=== PATIENT | female | born 1955 | race Caucasian/White ===

== ENCOUNTER 2018-03-13 16:21 | Emergency (ER) | payer BC ==
--- NOTE | 2018-03-13 17:06 | EDPHY ---
H & P Time Seen by Provider: 03/13/18 16:38 HPI/ROS: This patient presents with achy right calf pain and swelling atraumatic in onset. She explains that 2 half days ago she awakened with pain and swelling that was initially moderate pain in the right calf worsen with walking. The intensity of the pain is actually diminish since then and is currently mild but she notices persistent swelling and pain. When she spoke to her primary care physician they recommended she come in for further evaluation to rule out DVT. Patient's only apparent risk factor for DVT is a knee procedure [address] Sharma-gel injection to the right knee for osteoarthritis. ROS: Constitutional: No fevers. No other complaints. HEENT: No complaints line pulmonary: No shortness of breath or chest pain. Cardiovascular: No lightheadedness. Integumentary: The patient reports that she feels slight warmth to touch to the affected right calf but has noticed no discoloration to the skin. Neuro: No numbness or tingling Musculoskeletal: No recent trauma. No other musculoskeletal complaints this time. 7 point ROS is otherwise negative. Past Medical/Surgical History: Bilateral knee osteoarthritis. Hypertension Family history is negative for DVT or PE Social History: No recent prolonged travel or immobilization. Smoking Status: Never smoked Physical Exam: General Appearance: Alert, no distress. ENT, Mouth: Mucous membranes moist. Respiratory: There are no retractions, lungs are clear to auscultation. Cardiovascular: Regular rate and rhythm. No murmur gallop rub. She maintains 2+ symmetric pulses in bilateral lower extremities. Neurological: GCS 15 with no focal deficits in affected lower extremity. Skin: Warm and dry, no rashes. Extremities are symmetrical, full range of motion. Psychiatric: Mood and affect are normal DIFFERENTIAL DIAGNOSIS: After history and physical exam differential diagnosis was considered for calf muscle strain, DVT, subtle Curtis cyst, referred pain from her osteoarthritis Constitutional: Initial Vital Signs Temperature (C) 37.0 C 03/13/18 16:35 Heart Rate 87 03/13/18 16:35 Respiratory Rate 16 03/13/18 16:35 Blood Pressure 130/80 H 03/13/18 16:35 O2 Sat (%) 94 03/13/18 16:35 O2 Delivery Mode Room Air Allergies/Adverse Reactions: sulfasalazine [From Azulfidine] Allergy (Verified 05/10/18 18:45) Home Medications: Medication Instructions Recorded Amitriptyline HCl 03/13/18 Clobetasol 0.05% 03/13/18 Cromylyn Sodium Eyedrops 03/13/18 DULoxetine 03/13/18 Hrt 03/13/18 Losartan Potassium 03/13/18 Multivitamins 03/13/18 Wellbutrin 75mg (*) 03/13/18 Hydrocodone/APAP 5/325 [[place] 1 - 2 tab PO Q4H PRN #10 tab 03/16/18 5/325] Pravastatin Sodium 03/16/18 MDM/Departure - MDM Diagnostics: The Doppler ultrasound of lower extremity is negative for DVT or other significant abnormalities per radiologist, Dr. Early ED Course/Re-evaluation: Discussion: Patient with calf pain without significant risk factors except for minor risk of recent the procedure for DVT with a negative Doppler ultrasound. I suspect the patient has a muscle strain. I counseled her regarding this and demonstrated some stretches that may assist with her muscle strain. Patient her stands the need to return to the emergency department should she develop any significant worsening of her symptoms despite the treatment plan. - Depart Disposition: Home, Routine, Self-Care Clinical Impression: Right calf pain Condition: Good Instructions: Leg Pain (ED) Additional Instructions: Diagnosis: Leg pain Your ultrasound of the leg revealed no evidence of deep venous thrombosis. Plan: Tylenol and/or ibuprofen for discomfort as needed Gentle stretching daily Symptoms should improve over the next 3-7 days. Return for any significant worsening despite the treatment plan. Referrals: Cristiane Grant MD [Primary Care Provider] - As per Instructions
[2018-03-13 17:44] VITALS: BP 133/87
== END 2018-03-13 17:43 | disposition home or self-care (01) ==
LOC: CED 16:21
DX: M79.604 Pain in right leg (principal); I10 Essential (primary) hypertension
CPT/HCPCS: 93971-PO

== ENCOUNTER 2018-03-16 18:31 | Emergency (ER) | payer BC ==
--- NOTE | 2018-03-16 18:33 | EDPHY ---
H & P Time Seen by Provider: 03/16/18 18:33 HPI/ROS: HPI CHIEF COMPLAINT: Right leg pain, recent ER visit HISTORY OF PRESENT ILLNESS: Very pleasant 62-year-old female who presents emergency room with right leg pain. She was recently here in the ER for right flank pain and swelling 3 days ago and had ultrasound. I did review the previous ER chart as well as ultrasound. There is no evidence of DVT on ultrasound. She states that her pain is been doing okay however today she thinks she may re-injured her calf. She was walking and stepped somewhat awkward and felt increasing worsening pain to the right posterior calf. The pain is notably worse when she dorsiflex her foot. Or noticed when she straightens her leg. She has significant pain to the posterior calf. She is neurovascularly intact on exam. She has a good distal pulse. Warm extremity. There is no compartment syndrome on exam. Compartments are soft. There is tenderness to palpation over the posterior mid calf. The Achilles intact. Most likely clinically she has a gastrocnemius or calf tear. Most likely partial. She has good plantar flexion and dorsiflexion of her foot. However pain with dorsiflexion. Past Medical History: Hypertension, osteoarthritis Past Surgical History: Recent knee injection of correction for osteoarthritis Social History: Denies drugs alcohol tobacco. Family History: Noncontributory ROS REVIEW OF SYSTEMS: A comprehensive 10 point review of systems is otherwise negative aside from elements mentioned in the history of present illness. Exam Constitutional triage nursing summary reviewed, vital signs reviewed, awake/ alert. Eyes normal conjunctivae and sclera, EOMI, PERRLA. HENT normal inspection, atraumatic, moist mucus membranes, no epistaxis, neck supple/ no meningismus, no raccoon eyes. Respiratory clear to auscultation bilaterally, normal breath sounds, no respiratory distress, no wheezing. Cardiovascular rate normal, regular rhythm, no murmur, no edema, distal pulses normal. Gastrointestinal soft, non-tender, no rebound, no guarding, normal bowel sounds, no distension, no pulsatile mass. Genitourinary no CVA tenderness. Musculoskeletal RLE: The pain is notably worse when she dorsiflex her foot. Or distally when she straightens her leg. She has significant pain to the posterior calf. She is neurovascularly intact on exam. She has a good distal pulse. Warm extremity. There is no compartment syndrome on exam. Compartments are soft. There is tenderness to palpation over the posterior mid calf. The Achilles intact. Most likely clinically she has a gastrocnemius or calf tear. Most likely partial. She has good plantar flexion and dorsiflexion of her foot. However pain with dorsiflexion. no midline vertebral tenderness, full range of motion, no calf swelling, no tenderness of extremities, no meningismus, good pulses, neurovascularly intact. Skin pink, warm, & dry, no rash, skin atraumatic. Neurologic awake, alert and oriented x 3, AAOx3, moves all 4 extremities equally, motor intact, sensory intact, CN II-XII intact, normal cerebellar, normal vision, normal speech. Psychiatric normal mood/affect. Heme/Lymph/Immune no lymphadenopathy. Differential Diagnosis: Includes but is not limited to in a particular order gastrocnemius tear, musculoskeletal tear, muscle strain, partial tear, Curtis cyst, ruptured Curtis cyst no evidence of DVT from ultrasound from a few days ago , Medical Decision Making: Plan for this pain the right tib-fib, and ultrasound soft tissue to further evaluate. Most likely placed on crutches, and walking boot to help. Close orthopedic follow-up. Patient states she cannot take anti-inflammatories. Will prescribe [place] for pain control. Limited supply. Will refer to orthopedics for further care and follow-up. Clinically most likely she has a ruptured Curtis cyst versus musculoskeletal tear. Re-evaluation: X-ray reviewed. No evidence of acute bony abnormality or fracture. Interpreted by myself. Ultrasound reviewed shows complex Curtis cyst. I went over this with the patient. Gave her ultrasound results. Recommend elevation, ice, anti-inflammatory pain medicine. [place] for severe pain. Crutches walking boot for comfort. Follow up with Orthopedics as needed. She understands. Source: Patient - Medical/Surgical History Hx Asthma: No Hx Chronic Respiratory Disease: No Hx Diabetes: No Hx Cardiac Disease: No Hx Renal Disease: No Hx Cirrhosis: No Hx Alcoholism: No Hx HIV/AIDS: No Hx Splenectomy or Spleen Trauma: No Other PMH: Med hx-environmental allergies,anxiety/depression,mitochondria myopathy. surg-4 c-sect,2 surg,shoulder x2 - Social History Smoking Status: Never smoked Constitutional: Initial Vital Signs Temperature (C) 36.6 C 03/16/18 18:39 Heart Rate 72 03/16/18 18:39 Respiratory Rate 24 H 03/16/18 18:39 Blood Pressure 130/79 H 03/16/18 18:39 O2 Sat (%) 100 03/16/18 18:39 O2 Delivery Mode Room Air Allergies/Adverse Reactions: sulfasalazine [From Azulfidine] Allergy (Verified 03/16/18 18:45) Home Medications: Medication Instructions Recorded Amitriptyline HCl 03/13/18 Clobetasol 0.05% 03/13/18 Cromylyn Sodium Eyedrops 03/13/18 DULoxetine 03/13/18 Hrt 03/13/18 Losartan Potassium 03/13/18 Multivitamins 03/13/18 Wellbutrin 75mg (*) 03/13/18 Hydrocodone/APAP 5/325 [[place] 1 - 2 tab PO Q4H PRN #10 tab 03/16/18 5/325] Pravastatin Sodium 03/16/18 Medical Decision Making - Diagnostics Imaging Results: Imaging Impressions Extremity Ultrasound 03/16/18 18:46 Impression: Complex Curtis's cyst, with a deep subcutaneous fluid collection in the proximal calf that may be separate from the Curtis's cyst, which could be related to muscle tear/hematoma or inferior extension of a ruptured Curtis's cyst. Findings discussed with Kam Andersen M.D., on March 16, 2018 at 1927. - Data Points Medications Given: Discontinued Medications Hydrocodone Bitart/Acetaminophen ([place] 5/325) 2 tab PO EDNOW ONE Stop: 03/16/18 18:54 Last Admin: 03/16/18 19:14 Dose: 2 tab Departure - Departure Disposition: Home, Routine, Self-Care Clinical Impression: Curtis cyst Qualifiers: Laterality: right Qualified Code(s): M71.21 - Synovial cyst of popliteal space [Curtis], right knee Condition: Good Instructions: Muscle Strain (ED), Bakers Cyst (ED) Additional Instructions: 1. Recommend elevating your leg. 2. Recommend walking boot and crutches for comfort and immobilization. 3. [place] for severe pain. 4. Follow up with Orthopedics. 5. Return emergency room if there is worsening symptoms questions or concerns. Referrals: Heather Sharma MD [Medical Doctor] - As per Instructions Prescriptions: Hydrocodone/APAP 5/325 [[place] 5/325] 1 - 2 tab PO Q4H PRN #10 tab PRN Reason: Pain, Moderate
[2018-03-16] MEDS ORDERED: HYDROCOD/APAP 5/325 PREPACK#6 BTL TAKEHOME ONE (18:46)
[2018-03-16] MEDS ORDERED: HYDROCODONE/APAP 10/325 TAB PO ONE (18:46)
[2018-03-16] MEDS ORDERED: HYDROCODONE/APAP 5/325 TAB PO ONE (18:53)
[2018-03-16 20:24] VITALS: BP 141/85
== END 2018-03-16 20:10 | disposition home or self-care (01) ==
LOC: CED 18:31
DX: M71.21 Synovial cyst of popliteal space [Baker], right knee (principal); I10 Essential (primary) hypertension
CPT/HCPCS: 73590-PO; 76882-PO; L4386

== ENCOUNTER 2019-01-30 05:38 | Day surgery (SDC) | payer OTHER, BC ==
[2019-01-30] MEDS ORDERED: LR 1,000 ML IV SCH (06:04)
[2019-01-30] MEDS ORDERED: ceFAZolin 2 GM/DEXTROSE 100 ML IV ONE (06:04)
[2019-01-30] MEDS ORDERED: LR 1,000 ML IV ONE (06:05)
[2019-01-30] MEDS ORDERED: MIDAZOLAM 2 MG/2 ML VIAL IVP ONE (06:45)
--- NOTE | 2019-01-30 06:46 | PDANEPAE ---
ANE History of Present Illness 63 y/o with htn and mitochondrial myopathy (currently asymptomatic, on zero meds ) here for right shoulder surgery Does not want ISB Asystole with left shoulder surgery for 16 s on incision. ANE Past Medical History - Cardiovascular History Hx Hypertension: Yes Hx Arrhythmias: No Hx Chest Pain: No Hx Coronary Artery / Peripheral Vascular Disease: No Hx CHF / Valvular Disease: No Hx Palpitations: No - Pulmonary History Hx COPD: No Hx Asthma/Reactive Airway Disease: No Hx Recent Upper Respiratory Infection: No Hx Oxygen in Use at Home: No Hx Sleep Apnea: Yes Sleep Apnea Screening Result - Last Documented: Positive Pulmonary History Comment: HX OF MIK[place]A USES ORAL APPLIANCE - Neurologic History Hx Cerebrovascular Accident: No Hx Seizures: No Hx Dementia: No - Endocrine History Hx Diabetes: No - Renal History Hx Renal Disorders: Yes Renal History Comment: CHRONIC CYSTITIS NO ISSUES PAST 15 YEARS - Liver History Hx Hepatic Disorders: No - Neurological & Psychiatric Hx Hx Neurological and Psychiatric Disorders: No - Cancer History Hx Cancer: No - Congenital Disorder History Hx Congenital Disorders: No - GI History Hx Gastrointestinal Disorders: No - Other Health History Other Health History: MITOCHONDRIAL MYOPATHY. CURRENTLY SYMPTOM FREE. OSTEOARTHRITIS. RT SHLDR LIMITED ROM - Chronic Pain History Chronic Pain: Yes (RT SHLDR, AND LT KNEE) - Surgical History Prior Surgeries: HANNA TOTAL KNEE. LT SHLDR SCOPE ANE Review of Systems Review of Systems: - Exercise capacity METS (RN): 6 METS ANE Patient History - Allergies Allergies/Adverse Reactions: sulfasalazine [From Azulfidine] Allergy (Verified 01/19/19 15:38) Hives - Home Medications Home Medications: Amitriptyline HCl HS 03/13/18 [Last Taken 01/29/19] Clobetasol 0.05% MISC PRN 03/13/18 [Last Taken 01/29/19] DULoxetine HS 03/13/18 [Last Taken 01/29/19] Losartan Potassium DAILY 03/13/18 [Last Taken 01/29/19] Multivitamins DAILY 03/13/18 [Last Taken 01/29/19] Pravastatin Sodium HS 03/16/18 [Last Taken 01/29/19] Aspirin DAILY 01/19/19 [Last Taken 1 Week Ago ~01/23/19] Estrace Vaginal (*) ONCE 01/19/19 [Last Taken 01/29/19] Herbals/Supplements -Info Only DAILY 01/19/19 [Last Taken 01/29/19] - NPO status NPO Since - Liquids (Date): 01/29/19 NPO Since - Liquids (Time): 18:00 NPO Since - Solids (Date): 01/29/19 NPO Since - Solids (Time): 18:00 - Smoking Hx Smoking Status: Never smoked ANE Labs/Vital Signs - Vital Signs Blood Pressure: 151/88 Heart Rate: 63 Respiratory Rate: 14 O2 Sat (%): 95 Height: 162.56 cm Weight: 71.668 kg ANE Physical Exam - Airway Neck exam: FROM Mallampati Score: Class 2 Mouth exam: normal dental/mouth exam - ASA Status ASA Status: II
[2019-01-30] MEDS ORDERED: CALCIUM CHLORIDE 1 GM/10 ML INJ ONE (06:57)
[2019-01-30] MEDS ORDERED: THROMBIN (BOVINE) 5,000 UNIT VIAL TP ONE (06:57)
[2019-01-30] MEDS ORDERED: EPINEPHrine 30 MG/30 ML MDV (0.1 MG/0.1 ML) ONE (06:57)
[2019-01-30] MEDS ORDERED: BUPIVACAINE/EPI 0.5% 30 ML SDV ONE (06:57)
[2019-01-30] MEDS ORDERED: fentaNYL 100 MCG/2 ML INJ ONE (07:07)
[2019-01-30] MEDS ORDERED: PROPOFOL 200 MG/20 ML VIAL ONE ×2 (07:07→07:41)
--- NOTE | 2019-01-30 07:11 | PDGENHP ---
History & Physical Chief Complaint: r shoulder pain Cardiorespiratory Assessment: cta rrr. soft and nt
--- NOTE | 2019-01-30 07:11 | PDHPUP ---
History & Physical Update H&P update statement: This history and physical update is based on an assessment of the patient which was completed after admission or registration (within 24 hours), but prior to the surgery/procedure. H&P update: H&P reviewed & patient examined, no change in patient's condition since H&P completed
[2019-01-30] MEDS ORDERED: ONDANSETRON 4 MG/2 ML VIAL ONE ×2 (07:44)
[2019-01-30] MEDS ORDERED: LIDOCAINE 2% 100 MG/5 ML SYR ONE (07:44)
[2019-01-30] MEDS ORDERED: DEXAMETHASONE 4 MG/ML VIAL ONE ×2 (07:44)
[2019-01-30] MEDS ORDERED: HYDROmorphONE/DILAUDID 2 MG/ML INJ ONE (07:47)
[2019-01-30] MEDS ORDERED: ePHEDrine SULFATE 25 MG/5 ML SYR ONE ×2 (07:48→07:55)
[2019-01-30] MEDS ORDERED: GLYCOPYRROLATE 0.2 MG/1 ML VIAL ONE ×2 (07:54)
[2019-01-30] MEDS ORDERED: PHENYLEPHRINE HCL 100 MCG/ML SYR ONE (07:55)
--- NOTE | 2019-01-30 08:46 | GHP ---
[f rep st] HISTORY AND PHYSICAL DATE OF ADMISSION: 01/30/2019 CHIEF COMPLAINT: Right shoulder pain. HISTORY OF PRESENT ILLNESS: Ms. Baker is a 63-year-old female with a several-month history of right shoulder pain by multiple conservative management. MRI reveals labral tearing, partial-t hickness rotator cuff tear, glenohumeral joint arthritis and subacromial impingement probl em. DRUG ALLERGIES: Include azulfidine. CURRENT MEDICATIONS: Include amitriptyline, bupropion, clobetasol, cromolyn, duloxetine, estradiol, ezetimibe, losartan, methocarbamol, nitrofurantoin, pravastatin. 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 PAST SURGICAL HISTORY: Prior surgeries include total knee arthroplasties x2. Left knee scope x2, an d shoulder x1. SOCIAL HISTORY: She has never been a smoker. She is a social drinker. PHYSICAL EXAMINATION: The patient has decreased range of motion compared to the opposite side, with 5/5 strength to internal rotation, external rotation, biceps and triceps, but weakness to supraspinat us and Speed testing associated with pain. IMAGING: MRI reveals a labral tearing, partial-thickness rotator cuff tear, glenohumeral joint arthr itis biceps tendinopathy and subacromial anatomy. ASSESSMENT AND PLAN: Patient is status post right shoulder impingement syndrome with osteoarthritis labral tearing and possible biceps tendinopathy. The plan is take her to the operating room to under go a right shoulder arthroscopy with subacromial decompression and distal clavicle excision, possible biceps tenodesis. /[id number]/MODL
[2019-01-30] MEDS ORDERED: ALBUTEROL 3 ML DEYVIAL IH PRN (09:04)
[2019-01-30] MEDS ORDERED: MEPERIDINE 25 MG/0.5 ML AMP IVP PRN (09:04)
[2019-01-30] MEDS ORDERED: NALOXONE HCL 0.4 MG/ML INJ IVP PRN (09:04)
[2019-01-30] MEDS ORDERED: HYDROmorphONE/DILAUDID 2 MG/ML INJ IVP PRN (09:04)
[2019-01-30] MEDS ORDERED: fentaNYL 100 MCG/2 ML INJ IVP PRN (09:04)
[2019-01-30] MEDS ORDERED: DIAZEPAM 5 MG/ML 1 ML SYR IVP PRN (09:04)
[2019-01-30] MEDS ORDERED: ONDANSETRON 4 MG/2 ML VIAL IVP PRN (09:04)
[2019-01-30] MEDS ORDERED: PROMETHAZINE HCL 25 MG/ML INJ IVP PRN (09:04)
[2019-01-30] MEDS ORDERED: METOCLOPRAMIDE 10 MG/2 ML VIAL IVP PRN (09:04)
[2019-01-30] MEDS ORDERED: ACETAMINOPHEN 500 MG TAB PO PRN (09:04)
[2019-01-30] MEDS ORDERED: oxyCODONE IR 5 MG TAB PO PRN (09:04)
[2019-01-30] MEDS ORDERED: LR 500 ML IV PRN (09:04)
[2019-01-30] MEDS ORDERED: HYDROCODONE/APAP 5/325 TAB PO PRN (09:15)
[2019-01-30] MEDS ORDERED: ACETAMINOPHEN 325 MG TAB PO PRN (09:15)
--- NOTE | 2019-01-30 09:16 | POSTOPPROG ---
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
--- NOTE | 2019-01-30 10:21 | POSTANESTH ---
Post Anesthetic Evaluation Cardiovascular Status: Normal, Stable Respiratory Status: Normal, Stable Level of Consciousness/Mental Status: Can Participate in Eval Pain Control: Adequate, Prn Tx Ordered Nausea/Vomiting Control: Adequate, Prn Tx Ordered Complications Possibly Related to Anesthesia: None Noted
[2019-01-30 11:51] VITALS: BP 149/82
--- NOTE | 2019-01-30 13:53 | GOP ---
[f rep st] OPERATIVE REPORT DATE OF OPERATION: 01/30/2019 SURGEON: Heather Sharma MD SENIOR ANALYST DEVELOPER: Celso Hightower, [facility], LSA, whose presence was medically necessary. ANESTHESIA: By endotracheal intubation. PREOPERATIVE DIAGNOSIS: Right shoulder impingement syndrome with labral tear, glenohumeral joint art hritis and biceps tendinopathy. POSTOPERATIVE DIAGNOSIS: Right shoulder impingement syndrome with labral tear, glenohumeral joint ar thritis and biceps tendinopathy. PROCEDURE PERFORMED: Open right biceps tenodesis with right shoulder arthroscopy with debridement of biceps stump, labrum, rotator cuff and chondroplasty of glenohumeral joint as well as subacromial de compression and distal clavicle excision. FINDINGS: INDICATIONS: This is a 63-year-old female with a several-month history of right shoulder pain worsen ing with use and with time. MRI exams revealed an anterior acromial curve and hook as well as biceps tendinopathy, significant labral tearing and osteoarthritic changes of the glenohumeral joint. She wishes to have surgery in order to resolve the problem. DESCRIPTION OF PROCEDURE: Patient was brought to the operating room. The right side had been identi fied as the correct side by the patient, nurse and physician. Once in the operating room, she was pl aced under general anesthesia using endotracheal intubation. Once asleep, she was placed in a beach chair position with the right upper extremity sterilely prepped and draped in usual fashion using GSI solution. Once prepped and draped, incision was made on the posterolateral corner of the acromion w ith the camera introduced without difficulty. Inspection of the joint revealed grade 3 chondral carrillo ges to the humerus as well as the glenoid, abundant tearing of the anterior, posterior and superior p ortions of the labrum, fraying of the biceps anchor and significant fraying of the rotator cuff. The refore, using an in-to-out technique, an anterior portal was made superolateral to the coracoid proce ss with 6 x 75 mm threaded cannula placed through the anterior portal, and a 3.5 mm smooth shaver use d to debride and debulk tears of the anterior, superior and posterior portions of the labrum, removed loose fragments of cartilage from the glenohumeral joint as well as the frayed portions of the rotat or cuff. Arthroscopic Bovie tip was used to remove the biceps from its attachment on the superior la frederic and the shaver was used to debride the remnant of the stump that was attached onto the labrum. Once completed, instruments were removed from the glenohumeral joint. A 5 cm incision was made on th e anterior portion of shoulder with sharp dissection and carried down through the skin and subcutaneo us layers with bleeding controlled using electrocautery. The deltopectoral interval was found with t he deltoid retracted to the side. The biceps sheath was found, was incised along its entire length i n order to release the entirety of the biceps. She was noted to have abundant amount of synovium wit hin the biceps sheath as well as multiple loose bodies. A #2 FiberWire was woven into the biceps vida mp and the stump was cut short, was measured to be 6 mm in diameter. Therefore, drill hole was made in the biceps groove through 1 cortex. A 7 mm cannulated screw was passed over the guidewire through the anterior cortex of the humerus and a 9 mm [place] anchor was attached on the biceps stump and dr sanjay into the bone, holding the biceps into the bone. Once completed, the wound was irrigated with a ntibiotic solution, was closed in layers to include 2-0 Vicryl suture in an inverted interrupted stit ch for the subcutaneous layers and a 3-0 Monocryl suture and a running subcuticular stitch for the sk in. Attention was turned back to the shoulder with the camera introduced in subacromial space using the s mary portal sites as well as the anterior cannula. A third incision was made 2 cm lateral to the acro mial process in line with the posterior cortex of the clavicle. With the camera switched to the late ral portal and alternatingly using arthroscopic Bovie tip and a shaver used to remove the abundant am ount of soft tissue within the subacromial space and the undersurface of the acromion. She was noted to have a short, sharp inferior spur. An acromionizer bur was brought through the posterior portal and used to remove that spur and removing approximately 5 mm of bone. Attention was turned to the distal clavicle which was also noted to have a short, sharp inferior spur , and this was also removed using combination of shaver and bur, removed approximately 5 mm of bone. Once completed, all instruments were removed from the subacromial space and 30 cc of Marcaine was in fused in the subacromial space. The 3 portal sites were closed using 3-0 nylon suture in a figure-of -eight type stitch with plasmagel placed in the subacromial space. The bicipital wound was then dres sed with Steri-Strips. All wounds were then dressed with Xeroform, 4 x 4, and Tegaderm. She was com pletely undraped in the operating room, had a sling placed on the right upper extremity. She was wok en up, extubated, transferred onto a stretcher, and sent to recovery room in good condition. /[id number]/MODL
== END 2019-01-30 11:45 | disposition home or self-care (01) ==
LOC: FSGY 05:38
PROVIDERS: ATTEND Orthopaedic Surgery
PROC: 0LM30ZZ Reattachment of Right Upper Arm Tendon, Open Approach (ICD-10-PCS; principal; 2019-01-30 07:15)
PROC: 0L830ZZ Division of Right Upper Arm Tendon, Open Approach (ICD-10-PCS; principal; 2019-01-30 07:15)
PROC: 0PB94ZZ Excision of Right Clavicle, Percutaneous Endoscopic Approach (ICD-10-PCS; principal; 2019-01-30 07:15)
PROC: 0MB14ZZ Excision of Right Shoulder Bursa and Ligament, Percutaneous Endoscopic Approach (ICD-10-PCS; principal; 2019-01-30 07:15)
DX: M75.41 Impingement syndrome of right shoulder (principal); M75.21 Bicipital tendinitis, right shoulder; M75.81 Other shoulder lesions, right shoulder; M19.011 Primary osteoarthritis, right shoulder; E78.00 Pure hypercholesterolemia, unspecified; I10 Essential (primary) hypertension
CPT/HCPCS: C1713; J0171; J0690; J1100; J1170; J2001; J2250; J2370; J2405; J2704; J3010